=== PATIENT | male | born 1945 | race American Indian/Alaskan Native ===

== ENCOUNTER 2020-02-19 23:16 | Inpatient (IN) | payer MEDICARE ==
[2020-02-20] MEDS ORDERED: MORPHINE 4 MG/1 ML INJ IV ONE (00:31)
[2020-02-20] MEDS ORDERED: ONDANSETRON 4 MG/2 ML INJ IV ONE (00:31)
--- NOTE | 2020-02-20 01:15 | XRay Report ---
RIGHT HIP 2 VIEWS INDICATION / CLINICAL INFORMATION: pain after fall COMPARISON: 08/31/2018 FINDINGS: BONES / JOINT(S): There is an intertrochanteric fracture of the right femur . There is degenerative c hange in the right hip. SOFT TISSUES: No significant abnormality. ADDITIONAL FINDINGS: None. Signer Name: Avni Bolton MD Signed: 02/20/2020 1:10 AM Workstation Name: [id number]
--- NOTE | 2020-02-20 01:17 | Emergency Department Report ---
ED Extremity Problem HPI - General Chief complaint: Extremity Injury, Lower Stated complaint: RT LEG PAIN Time Seen by Provider: 02/20/20 00:26 Source: EMS Mode of arrival: Stretcher Limitations: Physical Limitation - History of Present Illness Initial comments: Patient is a 74-year-old F Citizen Of [place] male with a past medical history of recurrent pulmonary embolus atrial fibrillation and hypertension who is coming in with injury to the right hip. Patient states he was at home and saw a mouse or rat and it is attempt to try to catch the animal and kill it he tripped over the side of his couch and fell on his right hip. Patient was unable to bear weight after falling. He denies any other injury. Patient states the pain is 8 out of 10 and is worse with movement and better with rest. Severity scale (0 -10): 0 - Related Data Home Medications Medication Instructions Recorded Confirmed Last Taken ALBUTEROL Inhaler(NF) 180 mcg INHALATION Q4-6H PRN 08/28/18 08/31/18 08/27/18 Adult Low Dose Aspirin EC 81 mg PO DAILY 08/28/18 08/31/18 08/27/18 Nifedipine 60 mg PO DAILY 08/28/18 08/31/18 08/27/18 Furosemide [Lasix TAB] 40 mg PO BID 08/31/18 08/31/18 Unknown Metoprolol Tartrate 100 mg PO BID 08/31/18 08/31/18 Unknown Omeprazole 20 mg PO DAILY 08/31/18 08/31/18 Unknown Warfarin Sodium [Coumadin] 6 mg PO BID 08/31/18 08/31/18 Unknown cloNIDine [Catapres] 0.2 mg PO DAILY 08/31/18 08/31/18 Unknown oxyCODONE /ACETAMINOPHEN [Percocet 1 tab PO Q8HR PRN 08/31/18 08/31/18 Unknown 5/325 mg] Allergies Allergy/AdvReac Type Severity Reaction Status Date / Time No Known Allergies Allergy Verified 08/26/18 22:56 ED Review of Systems ROS: Stated complaint: RT LEG PAIN Other details as noted in HPI Comment: All other systems reviewed and negative ED Past Medical Hx - Past Medical History Hx Hypertension: Yes Hx Diabetes: Yes Hx Deep Vein Thrombosis: Yes Hx Pulmonary Embolism: Yes Hx GERD: Yes Hx Kidney Stones: Yes Additional medical history: AFib - Surgical History Hx Pacemaker: Yes Additional Surgical History: Right wrist 2008 - Social History Smoking Status: Former Smoker Substance Use Type: Alcohol - Medications Home Medications: Home Medications Medication Instructions Recorded Confirmed Last Taken Type ALBUTEROL Inhaler(NF) 180 mcg INHALATION Q4-6H PRN 08/28/18 08/31/18 08/27/18 History Adult Low Dose Aspirin EC 81 mg PO DAILY 08/28/18 08/31/18 08/27/18 History Nifedipine 60 mg PO DAILY 08/28/18 08/31/18 08/27/18 History Furosemide [Lasix TAB] 40 mg PO BID 08/31/18 08/31/18 Unknown History Metoprolol Tartrate 100 mg PO BID 08/31/18 08/31/18 Unknown History Omeprazole 20 mg PO DAILY 08/31/18 08/31/18 Unknown History Warfarin Sodium [Coumadin] 6 mg PO BID 08/31/18 08/31/18 Unknown History cloNIDine [Catapres] 0.2 mg PO DAILY 08/31/18 08/31/18 Unknown History oxyCODONE /ACETAMINOPHEN [Percocet 1 tab PO Q8HR PRN 08/31/18 08/31/18 Unknown History 5/325 mg] ED Physical Exam - General Limitations: Physical Limitation General appearance: alert, in no apparent distress - Head Head exam: Present: atraumatic, normocephalic - Eye Eye exam: Present: normal appearance, PERRL, EOMI - ENT ENT exam: Present: mucous membranes moist - Neck Neck exam: Present: normal inspection - Respiratory Respiratory exam: Present: normal lung sounds bilaterally. Absent: respiratory distress, wheezes, rales, rhonchi, stridor - Cardiovascular Cardiovascular Exam: Present: regular rate, normal rhythm. Absent: systolic murmur, diastolic murmur, rubs, gallop - GI/Abdominal GI/Abdominal exam: Present: soft, normal bowel sounds - Rectal Rectal exam: Present: deferred - Extremities Exam Extremities exam: Present: normal inspection - Expanded Lower Extremity Exam Right Hip exam: Present: tenderness, external rotation, shortening. Absent: full ROM Upper Leg exam: Present: normal inspection Knee exam: Present: normal inspection Lower Leg exam: Present: normal inspection Ankle exam: Present: normal inspection - Back Exam Back exam: Present: normal inspection - Neurological Exam Neurological exam: Present: alert, oriented X3 - Psychiatric Psychiatric exam: Present: normal affect, normal mood - Skin Skin exam: Present: warm, dry, intact, normal color. Absent: rash ED Course Vital Signs 02/20/20 00:10 Temperature 97.3 F L Pulse Rate 70 Respiratory 18 Rate Blood Pressure 136/84 [Left] O2 Sat by Pulse 97 Oximetry ED Medical Decision Making - Lab Data Result diagrams: 02/20/20 00:42 02/20/20 00:42 - Radiology Data Ordering Physician: LANA SUTTON MD Date of Service: 02/20/20 Procedure(s): XR chest 1V ap Accession Number(s): [id number] cc: LANA SUTTON MD Fluoro Time In Minutes: CHEST 1 VIEW INDICATION / CLINICAL INFORMATION: post op evaluation. COMPARISON: 08/31/2018 FINDINGS: SUPPORT DEVICES: AICD appears unchanged HEART / MEDIASTINUM: No significant abnormality. LUNGS / PLEURA: There are low lung volumes. No focal infiltrate is seen. No pneumothorax. ADDITIONAL FINDINGS: No significant additional findings. IMPRESSION: 1. No acute findings. Signer Name: Avni Bolton MD Signed: 02/20/2020 1:11 AM Workstation Name: [id number] Patient: JAELYN WHITNEY MR#: [id number] : 1945 Acct:[id number] Age/Sex: 74 / M ADM Date: 02/19/20 Loc: ED Attending Dr: Ordering Physician: LANA SUTTON MD Date of Service: 02/20/20 Procedure(s): XR hip 2-3V RT Accession Number(s): [id number] cc: LANA SUTTON MD Fluoro Time In Minutes: RIGHT HIP 2 VIEWS INDICATION / CLINICAL INFORMATION: pain after fall COMPARISON: 08/31/2018 FINDINGS: BONES / JOINT(S): There is an intertrochanteric fracture of the right femur . There is degenerative change in the right hip. SOFT TISSUES: No significant abnormality. ADDITIONAL FINDINGS: None. Signer Name: Avni Bolton MD Signed: 02/20/2020 1:10 AM Workstation Name: [employer] - Medical Decision Making Patient is a 74-year-old who fell and has a intertrochanteric fracture of the right hip. Dr. Serrano with orthopedic surgery has been consulted and the patient be admitted to the hospitalist service. Critical care attestation.: If time is entered above; I have spent that time in minutes in the direct care o f this critically ill patient, excluding procedure time. ED Disposition Clinical Impression: Intertrochanteric fracture of right femur Disposition: OP ADMIT IP TO THIS HOSP Is pt being admited?: Yes Does the pt Need Aspirin: No Condition: Stable Time of Disposition: 01:52
[2020-02-20 01:25] LABS: Basophils % (Auto) 0.5 % (0.0-1.8); Eosinophils # (Auto) 0.1 K/mm3 (0.0-0.4); Eosinophils % (Auto) 1.6 % (0.0-4.3); Hematocrit 45.8 % (35.5-45.6); Hemoglobin 14.8 gm/dl (11.8-15.2); Lymphocytes # (Auto) 0.7 K/mm3 (1.2-5.4); Lymphocytes % (Auto) 14.7 % (13.4-35.0); Mean Corpuscular HGB Conc 32 % (32-34); Mean Corpuscular Volume 80 fl (84-94); Monocytes # (Auto) 0.4 K/mm3 (0.0-0.8); Monocytes % (Auto) 7.4 % (0.0-7.3); Platelet Count 135 K/mm3 (140-440); Red Blood Count 5.72 M/mm3 (3.65-5.03); Red Cell Distribution Width 17.8 % (13.2-15.2)
[2020-02-20 01:34] LABS: Calcium 8.6 mg/dL (8.4-10.2)
[2020-02-20 01:55] LABS: INR 1.57 (0.87-1.13)
[2020-02-20 01:56] LABS: Partial Thromboplastin Time 27.7 Sec. (24.2-36.6)
[2020-02-20] MEDS ORDERED: ACETAMINOPHEN 325 MG TAB PO PRN (03:10)
--- NOTE | 2020-02-20 03:24 | History and Physical Report ---
History of Present Illness History of present illness: 74-year-old man with a history of DVT, PE, hypertension, A. fib, CHF, hyperlipidemia comes emergency room for evaluation. He states that he was at home saw a rat and was chasing it, however he fell over the side of the sofa and landed on his right side. He has pain on the right side, difficulty bearing weight. In the emergency room he was found to have a hip fracture for which she will be admitted for Review Of Systems: Constitutional: no weight loss, fever, chills Ears, eyes, nose, mouth and throat: no nasal congestion, no nasal discharge, no sinus pressure, blurry vision, diplopia Neck: No neck pain or rigidity. Cardiovascular: No palpitations, chest pain Respiratory: No shortness of breath, cough Gastrointestinal: No hematochezia Genitourinary : no dysuria, frequency Musculoskeletal: no muscle ache , joint pain Integumentary: no rash, no pruritis Neurological: no parathesias, focal weakness Endocrine: no cold or heat intolerance, no polyuria or polydipsia Hematologic/Lymphatic: no easy bruising, no easy bleeding, no gland swelling Allergic/Immunologic: no urticaria, no angioedema. PAST MEDICAL HISTORY: DVT, PE, hypertension, A. fib, CHF, hyperlipidemia PAST SURGICAL HISTORY: AICD SOCIAL HISTORY: Denies alcohol, tobacco, drugs FAMILY HISTORY: Hypertension Medications and Allergies Allergies Allergy/AdvReac Type Severity Reaction Status Date / Time No Known Allergies Allergy Verified 08/26/18 22:56 Home Medications Medication Instructions Recorded Confirmed Last Taken Type ALBUTEROL Inhaler(NF) 180 mcg INHALATION Q4-6H PRN 08/28/18 08/31/18 08/27/18 History Adult Low Dose Aspirin EC 81 mg PO DAILY 08/28/18 08/31/18 08/27/18 History Nifedipine 60 mg PO DAILY 08/28/18 08/31/18 08/27/18 History Furosemide [Lasix TAB] 40 mg PO BID 08/31/18 08/31/18 Unknown History Metoprolol Tartrate 100 mg PO BID 08/31/18 08/31/18 Unknown History Omeprazole 20 mg PO DAILY 08/31/18 08/31/18 Unknown History Warfarin Sodium [Coumadin] 6 mg PO BID 08/31/18 08/31/18 Unknown History cloNIDine [Catapres] 0.2 mg PO DAILY 08/31/18 08/31/18 Unknown History oxyCODONE /ACETAMINOPHEN [Percocet 1 tab PO Q8HR PRN 08/31/18 08/31/18 Unknown History 5/325 mg] Active Meds: Active Medications Acetaminophen (Tylenol) 650 mg PO Q4H PRN PRN Reason: Pain MILD(1-3)/Fever >100.5/COREA Morphine Sulfate (Morphine) 2 mg IV Q4H PRN PRN Reason: Pain, Moderate (4-6) Ondansetron HCl (Zofran) 4 mg IV Q8H PRN PRN Reason: Nausea And Vomiting Sodium Chloride (Sodium Chloride Flush Syringe 10 Ml) 10 ml IV BID EDILSON Sodium Chloride (Sodium Chloride Flush Syringe 10 Ml) 10 ml IV PRN PRN PRN Reason: LINE FLUSH Exam - Physical Exam Narrative exam: Gen. appearance: Patient lying in bed, no apparent distress HEENT: Normocephalic, atraumatic, pupils equally round and reactive to light, extraocular movement intact, and no sclericterus,. No JVD or thyromegaly or nodule,neck supple, no carotid bruit ,mucous membranes moist, no exudate or erythema Heart: S1, S2, regular rate and rhythm Lungs: Clear bilaterally, breathing comfortable Abdomen: Positive bowel sounds, nontender, nondistended, no organomegaly Extremity: no edema, cyanosis, clubbing Skin: No rash, nodules, warm, dry Neuro: Cranial nerves II to XII intact, speech is fluent, moves extremities, sensory intact - Constitutional Vitals: Temp Pulse Resp BP Pulse Ox 97.3 F L 70 18 136/84 97 02/20/20 00:10 02/20/20 00:10 02/20/20 00:10 02/20/20 00:10 02/20/20 00:10 Results - Labs CBC & Chem 7: 02/20/20 00:42 02/20/20 00:42 Labs: Abnormal lab results 02/20/20 02/20/20 02/20/20 Range/Units 00:42 00:42 00:42 RBC 5.72 H (3.65-5.03) M/mm3 Hct 45.8 H (35.5-45.6) % MCV 80 L (84-94) fl MCH 26 L (28-32) pg RDW 17.8 H (13.2-15.2) % Plt Count 135 L (140-440) K/mm3 [place] % (Auto) 7.4 H (0.0-7.3) % Lymph # 0.7 L (1.2-5.4) K/mm3 Seg Neutrophils % 75.8 H (40.0-70.0) % PT 18.8 H (12.2-14.9) Sec. INR 1.57 H (0.87-1.13) BUN 27 H (9-20) mg/dL Glucose 162 H (75-100) mg/dL Assessment and Plan X-ray of the hip reviewed Assessment Right hip fracture Surgery was consulted to see the patient, n.p.o., IV morphine DVT/PE/A. fib/thrombocytopenia Patient is thrombocytopenic, hold heparin for now Resume Coumadin after surgery Hypertension IV hydralazine as needed for blood pressure control Chronic CHF, probably diastolic, stable DVT prophylaxis
[2020-02-20] MEDS ORDERED: ONDANSETRON 4 MG/2 ML INJ ONE (06:28)
[2020-02-20] MEDS ORDERED: MORPHINE 2 MG/1 ML INJ ONE ×3 (06:28→18:02)
[2020-02-20] MEDS: MORPHINE 2 MG/1 ML INJ IV PRN ×3 (09:16→21:59)
--- NOTE | 2020-02-20 14:26 | Consultation ---
History of Present Illness - HPI Consult date: 02/20/20 Consult reason: fracture History of present illness: 74-year-old male with a history of DVT, PE, hypertension, A. fib, CHF, hyperlipidemia comes emergency room for evaluation. He states that he was at home saw a rat and was chasing it, however he fell over the side of the sofa and landed on his right side. He has pain on the right side, difficulty bearing weight. In the emergency department x-rays were done found to have a displaced right intertrochanteric hip fracture. Medications and Allergies Allergies Allergy/AdvReac Type Severity Reaction Status Date / Time No Known Allergies Allergy Verified 08/26/18 22:56 Home Medications Medication Instructions Recorded Confirmed Last Taken Type Amlodipine Besylate [Norvasc] 10 mg PO DAILY 02/20/20 02/20/20 2 Days Ago History ~02/18/20 Aspirin [Aspirin BABY CHEW TAB] 81 mg PO QDAY 02/20/20 02/20/20 2 Days Ago History ~02/18/20 Warfarin [Coumadin] 6 mg PO DAILY 02/20/20 02/20/20 2 Days Ago History ~02/18/20 lisinopriL [Zestril TAB] 40 mg PO QDAY 02/20/20 02/20/20 2 Days Ago History ~02/18/20 minoxidiL [Loniten] 2.5 mg PO DAILY 02/20/20 02/20/20 2 Days Ago History ~02/18/20 Active Meds: Active Medications Acetaminophen (Tylenol) 650 mg PO Q4H PRN PRN Reason: Pain MILD(1-3)/Fever >100.5/COREA Morphine Sulfate (Morphine) 2 mg IV Q4H PRN PRN Reason: Pain, Moderate (4-6) Last Admin: 02/20/20 09:16 Dose: 2 mg Documented by: Ondansetron HCl (Zofran) 4 mg IV Q8H PRN PRN Reason: Nausea And Vomiting Sodium Chloride (Sodium Chloride Flush Syringe 10 Ml) 10 ml IV BID EDILSON Last Admin: 02/20/20 09:33 Dose: 10 ml Documented by: Sodium Chloride (Sodium Chloride Flush Syringe 10 Ml) 10 ml IV PRN PRN PRN Reason: LINE FLUSH Physical Examination - Physical exam Narrative exam: On physical examination significant musculoskeletal findings relates to the lower extremities on the right patient is noted to have shortening with external rotation there is moderate swelling in the proximal thigh there is tenderness on palpation along with decreased active and passive range of motion Eyes: PERRL ENT: Positive: clear oral mucosa Respiratory effort: normal Respiratory: bilateral: CTA Rhythm: regular Heart Sounds: Positive: S1 & S2 General gastrointestinal: Positive: soft, non-tender, non-distended, normal bowel sounds Integumentary: clear, warm, dry Neurologic: Positive: CNII-XII intact, moves all extremities, gait normal. Negative: focal deficits - Cervical Spine Neck pain: none Tenderness with palpation: none Full ROM: yes ROM: flexion: normal ROM: extension: normal ROM: rotation right: normal ROM: rotation left: normal ROM: lateral flexion right: normal ROM: lateral flexion left: normal - Lumbar Spine Back pain: none Tenderness with palpation: none Appearance: normal Full ROM: yes ROM: flexion: normal ROM: extension: normal ROM: rotation right: normal ROM: rotation left: normal ROM: lateral flexion right: normal ROM: lateral flexion left: normal Assessment and Plan Displaced right intertrochanteric hip fracture Plan recommendation patient will require close reduction and insertion of intramedullary nail right proximal femur
--- NOTE | 2020-02-20 17:07 | Event Note ---
Date: 02/20/20 Very pleasant 74-year-old male patient with multiple medical problems, had mechanical fall and sustained right intertrochanteric hip fracture, evaluated by orthopedic surgeon Dr. Serrano, planning to schedule for close reduction and insertion of intramedullary nail right proximal femur for tomorrow. Patient is placed n.p.o. from midnight. Continue all the current management
[2020-02-20] MEDS ORDERED: ZOLPIDEM 5 MG TAB PO PRN (17:08)
[2020-02-20] MEDS: ONDANSETRON 4 MG/2 ML INJ IV PRN (22:03)
[2020-02-21 06:08] LABS: Basophils % (Auto) 0.5 % (0.0-1.8); Eosinophils # (Auto) 0.1 K/mm3 (0.0-0.4); Eosinophils % (Auto) 1.7 % (0.0-4.3); Hemoglobin 15.2 gm/dl (11.8-15.2); Lymphocytes # (Auto) 1.1 K/mm3 (1.2-5.4); Lymphocytes % (Auto) 14.6 % (13.4-35.0); Mean Corpuscular HGB Conc 32 % (32-34); Mean Corpuscular Volume 81 fl (84-94); Monocytes # (Auto) 0.8 K/mm3 (0.0-0.8); Monocytes % (Auto) 9.8 % (0.0-7.3); Platelet Count 107 K/mm3 (140-440); Red Blood Count 5.82 M/mm3 (3.65-5.03); Red Cell Distribution Width 17.6 % (13.2-15.2)
[2020-02-21 06:25] LABS: Calcium 8.5 mg/dL (8.4-10.2)
[2020-02-21] MEDS ORDERED: ONDANSETRON 4 MG/2 ML INJ IV PRN (08:56)
--- NOTE | 2020-02-21 09:05 | Anesthesia Consultation ---
Anesthesia Consult and Med Hx Date of service: 02/21/20 - Airway Anesthetic Teeth Evaluation: Good (Teeth need work) ROM Head & Neck: Adequate Mental/Hyoid Distance: Adequate Mallampati Class: Class II Intubation Access Assessment: Good - Pulmonary Exam CTA: Yes - Cardiac Exam Cardiac Exam: RRR - Pre-Operative Health Status ASA Pre-Surgery Classification: ASA3 Proposed Anesthetic Plan: General - Pulmonary Hx Smoking: No (Quit. HX PE) Hx Respiratory Symptoms: Yes (Can climb one flights of stairs) Hx Sleep Apnea: Yes - Cardiovascular System Hx Hypertension: Yes Hx Pacemaker: Yes (CHF) Hx Internal Defibrillator: Yes (One discharge when first put in. Checked last week) - Endocrine Hx Renal Disease: Yes (HX Stones) Hx Non-Insulin Dependent Diabetes: Yes - Hematic Hx Sickle Cell Disease: No - Other Systems Hx Obesity: Yes
[2020-02-21] MEDS: LACTATED RINGERS 1,000 ML IV SCH ×2 (09:20→15:41)
[2020-02-21] MEDS ORDERED: ACETAMINOPHEN 325 MG TAB PO ONE (09:30)
[2020-02-21] MEDS ORDERED: MAGNESIUM OXIDE 400 MG TAB PO ONE (09:30)
[2020-02-21] MEDS ORDERED: MIDAZOLAM 2 MG/2 ML INJ IV NR (10:00)
[2020-02-21] MEDS ORDERED: CELECOXIB 200 MG CAP PO NR (10:00)
[2020-02-21] MEDS ORDERED: propofoL 200 MG/20 ML VIAL IV ONE (10:04)
[2020-02-21] MEDS ORDERED: HYDROmorphone 1 MG/1 ML INJ ONE (10:04)
[2020-02-21] MEDS ORDERED: LIDOCAINE MPF (2%) 20 MG/1 ML VIAL 5 ML ONE (10:06)
[2020-02-21] MEDS ORDERED: BUPIVACAINE-EPINEPHRINE/PF 0.5%-1:200,000 (30 ML) VIAL INFILTRATI ONE (10:52)
[2020-02-21] MEDS ORDERED: BUPIVACAINE/PF (0.5%) 5 MG/1 ML 30 ML VIAL INFILTRATI ONE ×4 (10:52→11:46)
[2020-02-21] MEDS ORDERED: SODIUM CHLORIDE 0.9% IRR 1,500 ML BOTTLE IR ONE (11:28)
[2020-02-21] MEDS ORDERED: MORPHINE 4 MG/1 ML INJ IV PRN (11:39)
--- NOTE | 2020-02-21 11:45 | Procedure Note ---
Date of procedure: 02/21/20 Pre-op diagnosis: Displaced right intertrochanteric hip fracture Post-op diagnosis: same Procedure: Closed reduction insertion of intramedullary nail right femur Procedure The patient was brought to the OR on the hospital bed He was requested to lie in the lateral decubitus position at which point spinal anesthesia was induced following this the patient was then transferred onto the [place] table supine the legs were placed in longitudinal traction Z C-arm fluoroscope was brought in and the hip was reduced in both the AP and lateral planes. Next the right hip was prepped and draped in the usual sterile manner a stab wound was made posterior and superior to the greater trochanter this is carried down sharply through skin and fascia using a Mann elevator the soft tissues were split down to the tip of the greater trochanter A large awl was used to enter the proximal medullary canal this was followed by placement of the guidewire again under C-arm visualization the tip of the guidewire was seen in the distal femur next the measurements were obtained a 11 x 420 intramedullary nail was selected this was followed by reaming up to a 12-1/2 mm diameter following this the intramedullary nail was inserted and a antegrade fashion down the proximal canal into the distal femur next the targeting device for the helical blade was placed and the stab wound was made along the lateral border of the thigh again under C-arm visualization a guidewire was inserted into the femoral neck again measuring this delay a 80 mm helical blade was chosen the forearm or near cortex was drilled followed by insertion of the proximal helical blade next the locking sc rew proximally was engaged again under C-arm direction AP and lateral views were obtained showing good reduction at the fracture and placement of the hardware following this a wound was copiously irrigated and was closed in a standard routine fashion and the patient tolerated the procedure there were no complications and he was sent to postanesthesia recovery in stable condition Anesthesia: GETA Surgeon: TIFFANIE KING Operating Room Registered Nurse: MARION CABELLO Estimated blood loss: 50-100ml Pathology: none Condition: stable Disposition: PACU
[2020-02-21] MEDS ORDERED: ONDANSETRON 4 MG/2 ML INJ ONE (12:01)
[2020-02-21] MEDS: HYDROmorphone 1 MG/1 ML INJ IV PRN ×2 (12:42→13:09)
--- NOTE | 2020-02-21 14:37 | XRay Report ---
CLINICAL INDICATION: Femoral joan placement TECHNICAL DATA: 6 images submitted using C-arm technology. Fluoroscopy time 1 minute 5 seconds FINDINGS: Placement of a femoral joan using C-arm technology IMPRESSION: Femoral joan with hip nail component placement right femur Signer Name: Julius Valle MD Signed: 02/21/2020 2:32 PM Workstation Name: [id number]
--- NOTE | 2020-02-21 15:31 | Progress Note ---
Assessment and Plan Assessment and plan: --Displaced right intertrochanteric hip fracture: s/p closed reduction insertion of intramedullary nail right femur Orthopedic following Follow-up x-ray hip; Femoral joan with hip nail component placement right femur --History of mechanical fall; fall precautions PT OT prior to discharge --History of DVT/PE/on Coumadin Coumadin held due to surgical procedure Resume when cleared by orthopedic --A. fib; rate controlled Continue current beta-blockers , Coumadin stopped for surgery Consult cardiology if needed --thrombocytopenia; No evidence of external bleeding, hold heparin and Coumadin Closely monitor --Hypertension; moderate control Continue current antihypertensives and PRN medications --DVT phylaxis SCDs; Resume Coumadin once cleared by Ortho Monitor closely and adjust management as needed Plan of care reviewed with the patient's nurse History Interval history: Patient seen and examined in his room at bedside Patient's chart and records reviewed Patient underwent right hip surgery Tolerated well. Sedated Easily awakens Vital signs reviewed On BiPAP Hospitalist Physical - Constitutional Vitals: Temp Pulse Resp BP Pulse Ox 97.7 F 129 H 17 90/73 97 02/21/20 14:46 02/21/20 14:46 02/21/20 14:46 02/21/20 14:46 02/21/20 14:46 General appearance: Present: mild distress, well-nourished, obese, other (Sedated on BiPAP) - EENT Eyes: Present: PERRL, EOM intact - Neck Neck: Present: supple, normal ROM - Respiratory Respiratory effort: normal Respiratory: bilateral: diminished, negative: rales, rhonchi, wheezing - Cardiovascular Rhythm: regular Heart Sounds: Present: S1 & S2 - Extremities Extremities: no ischemia, No edema, abnormal (Hip fracture status post surgery) - Abdominal General gastrointestinal: soft, non-tender, non-distended, normal bowel sounds - Integumentary Integumentary: Present: clear, warm - Psychiatric Psychiatric: appropriate mood/affect, cooperative - Neurologic Neurologic: moves all extremities Results - Labs CBC & Chem 7: 02/21/20 05:32 02/21/20 05:32 Labs: Laboratory Last Values WBC 7.7 K/mm3 (4.5-11.0) 02/21/20 05:32 RBC 5.82 M/mm3 (3.65-5.03) H 02/21/20 05:32 Hgb 15.2 gm/dl (11.8-15.2) 02/21/20 05:32 Hct 47.0 % (35.5-45.6) H 02/21/20 05:32 MCV 81 fl (84-94) L 02/21/20 05:32 MCH 26 pg (28-32) L 02/21/20 05:32 MCHC 32 % (32-34) 02/21/20 05:32 RDW 17.6 % (13.2-15.2) H 02/21/20 05:32 Plt Count 107 K/mm3 (140-440) L 02/21/20 05:32 Lymph % (Auto) 14.6 % (13.4-35.0) 02/21/20 05:32 [place] % (Auto) 9.8 % (0.0-7.3) H 02/21/20 05:32 Eos % (Auto) 1.7 % (0.0-4.3) 02/21/20 05:32 Baso % (Auto) 0.5 % (0.0-1.8) 02/21/20 05:32 Lymph # 1.1 K/mm3 (1.2-5.4) L 02/21/20 05:32 [place] # 0.8 K/mm3 (0.0-0.8) 02/21/20 05:32 Eos # 0.1 K/mm3 (0.0-0.4) 02/21/20 05:32 Baso # 0.0 K/mm3 (0.0-0.1) 02/21/20 05:32 Seg Neutrophils % 73.4 % (40.0-70.0) H 02/21/20 05:32 Seg Neutrophils # 5.7 K/mm3 (1.8-7.7) 02/21/20 05:32 PT 18.8 Sec. (12.2-14.9) H 02/20/20 00:42 INR 1.57 (0.87-1.13) H 02/20/20 00:42 APTT 27.7 Sec. (24.2-36.6) 02/20/20 00:42 Sodium 141 mmol/L (137-145) 02/21/20 05:32 Potassium 3.9 mmol/L (3.6-5.0) 02/21/20 05:32 Chloride 105.4 mmol/L (98-107) 02/21/20 05:32 Carbon Dioxide 20 mmol/L (22-30) L 02/21/20 05:32 Anion Gap 20 mmol/L 02/21/20 05:32 BUN 28 mg/dL (9-20) H 02/21/20 05:32 Creatinine 1.4 mg/dL (0.8-1.5) 02/21/20 05:32 Estimated GFR 60 ml/min 02/21/20 05:32 BUN/Creatinine Ratio 20 % 02/21/20 05:32 Glucose 150 mg/dL (75-100) H 02/21/20 05:32 POC Glucose 121 (70-105) H 02/21/20 06:26 Calcium 8.5 mg/dL (8.4-10.2) 02/21/20 05:32 Coronavirus (PCR) Negative (Negative) 02/21/20 09:40 [place]/IV: Voiding Method Urinal IV Catheter Type [Right INT / Saline Lock Antecubital] Active Medications - Current Medications Current Medications: Generic Name Dose Route Start Last Admin Trade Name Freq PRN Reason Stop Dose Admin Acetaminophen 650 mg 02/20/20 03:10 Tylenol PO Q4H PRN Pain MILD(1-3)/Fever >100.5/COREA Celecoxib 200 mg 02/21/20 10:00 02/21/20 09:20 Celebrex PO 02/21/20 16:00 200 mg PREOP NR Administration Enoxaparin Sodium 40 mg 02/22/20 10:00 Enoxaparin SUB-Q QDAY EDILSON Hydromorphone HCl 0.5 mg 02/21/20 08:56 02/21/20 13:09 Dilaudid IV 02/21/20 22:00 0.5 mg Q10MIN PRN Administration Pain , Severe (7-10) Lactated Ringer's 1,000 mls @ 125 mls/hr 02/21/20 10:00 02/21/20 09:20 Lactated Ringers IV 125 mls/hr DIRECT EDILSON Administration Cefazolin Sodium 3 gm/ Sodium 100 mls @ 200 mls/hr 02/21/20 10:00 Chloride IV 02/21/20 16:00 ONCE EDILSON Midazolam HCl 2 mg 02/21/20 10:00 02/21/20 09:55 Versed IV 02/21/20 23:59 2 mg PREOP NR Administration Morphine Sulfate 2 mg 02/21/20 11:39 Morphine IV Q4H PRN Pain, Moderate (4-6) Morphine Sulfate 4 mg 02/21/20 11:39 Morphine IV Q4H PRN Pain , Severe (7-10) Ondansetron HCl 4 mg 02/20/20 03:10 02/20/20 22:03 Zofran IV 4 mg Q8H PRN Administration Nausea And Vomiting Sodium Chloride 10 ml 02/20/20 10:00 02/20/20 22:05 Sodium Chloride Flush Syringe 10 Ml IV 10 ml BID EDILSON Administration Sodium Chloride 10 ml 02/20/20 03:10 Sodium Chloride Flush Syringe 10 Ml IV PRN PRN LINE FLUSH Sodium Chloride 10 ml 02/21/20 12:00 Sodium Chloride Flush Syringe 10 Ml IV 03/02/20 11:59 PRN NR Zolpidem Tartrate 5 mg 02/20/20 17:08 Ambien PO QHS PRN Sleep
--- NOTE | 2020-02-21 21:45 | Post Anesthesia Evaluation ---
- Post Anesthesia Evaluation Patient Participated: Yes Airway Patent: Yes Stable Respiratory Function: Yes Nausea/Vomiting: No Temp > 96.8F: Yes Pain Manageable: Yes Adequeate Hydration: Yes Anesthesia Complications: No Block Receding Appropriately: Not Applicable Patient on Ventilator: No
--- NOTE | 2020-02-21 21:45 | Anesthesia Day of Surgery ---
Anesthesia Day of Surgery - Day of Surgery Patient Examined: Yes Patient H&P Reviewed: Yes Patient is NPO: Yes
[2020-02-22] MEDS: MORPHINE 2 MG/1 ML INJ IV PRN (00:26)
[2020-02-22] MEDS: ONDANSETRON 4 MG/2 ML INJ IV PRN (00:28)
[2020-02-22] MEDS: LACTATED RINGERS 1,000 ML IV SCH ×2 (00:33→06:31)
[2020-02-22 04:11] LABS: Hematocrit 42.8 % (35.5-45.6); Hemoglobin 13.6 gm/dl (11.8-15.2)
[2020-02-22] MEDS: ENOXAPARIN 40 MG/0.4 ML INJ SUB-Q SCH (09:50)
[2020-02-22] MEDS ORDERED: ALUM-MAG HYDROXIDE-SIMETHICONE 200-200-20MG/5ML ORAL LIQD 30 ML PO SCH (10:30)
[2020-02-22] MEDS: PANTOPRAZOLE 40 MG TAB PO SCH (11:14)
[2020-02-22] MEDS: amLODIPine 10 MG TAB PO SCH (11:15)
[2020-02-22] MEDS: LISINOPRIL 40 MG TAB PO SCH (11:15)
[2020-02-22] MEDS: MINOXIDIL 2.5 MG TAB PO SCH (11:15)
--- NOTE | 2020-02-22 14:26 | Progress Note ---
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 fib; rate controlled Continue current beta-blockers , Coumadin stopped for surgery Consult cardiology if needed --thrombocytopenia; No evidence of external bleeding, hold heparin and Coumadin Closely monitor --Hypertension; moderate control Continue current antihypertensives and PRN medications --DVT phylaxis SCDs; Resume Coumadin once cleared by Ortho Discharge planning; possible subacute rehab versus home with home health When patient is stable DC planning per case management Plan of care reviewed with the patient and his nurse History Interval history: Patient seen and examined at bedside Overnight events noted Patient complains of abdominal discomfort Epigastric fullness dyspepsia and acidity After he ate kaur this morning Mild nausea no vomiting Tolerated physical therapy vital signs noted Hospitalist Physical - Constitutional Vitals: Temp Pulse Resp BP Pulse Ox 99.9 F H 64 20 107/71 95 02/22/20 07:07 02/22/20 07:07 02/22/20 07:07 02/22/20 07:07 02/22/20 10:00 General appearance: Present: mild distress, well-nourished, obese, other (Sedated on BiPAP) - EENT Eyes: Present: PERRL, EOM intact - Neck Neck: Present: supple, normal ROM - Respiratory Respiratory effort: normal Respiratory: bilateral: diminished, negative: rales, rhonchi, wheezing - Cardiovascular Rhythm: regular Heart Sounds: Present: S1 & S2 - Extremities Extremities: no ischemia, No edema - Abdominal General gastrointestinal: soft, non-tender, non-distended, normal bowel sounds - Integumentary Integumentary: Present: clear, warm - Psychiatric Psychiatric: appropriate mood/affect, cooperative - Neurologic Neurologic: moves all extremities Results - Labs CBC & Chem 7: 02/22/20 03:48 02/21/20 05:32 Labs: Laboratory Last Values WBC 7.7 K/mm3 (4.5-11.0) 02/21/20 05:32 RBC 5.82 M/mm3 (3.65-5.03) H 02/21/20 05:32 Hgb 13.6 gm/dl (11.8-15.2) 02/22/20 03:48 Hct 42.8 % (35.5-45.6) 02/22/20 03:48 MCV 81 fl (84-94) L 02/21/20 05:32 MCH 26 pg (28-32) L 02/21/20 05:32 MCHC 32 % (32-34) 02/21/20 05:32 RDW 17.6 % (13.2-15.2) H 02/21/20 05:32 Plt Count 107 K/mm3 (140-440) L 02/21/20 05:32 Lymph % (Auto) 14.6 % (13.4-35.0) 02/21/20 05:32 [place] % (Auto) 9.8 % (0.0-7.3) H 02/21/20 05:32 Eos % (Auto) 1.7 % (0.0-4.3) 02/21/20 05:32 Baso % (Auto) 0.5 % (0.0-1.8) 02/21/20 05:32 Lymph # 1.1 K/mm3 (1.2-5.4) L 02/21/20 05:32 [place] # 0.8 K/mm3 (0.0-0.8) 02/21/20 05:32 Eos # 0.1 K/mm3 (0.0-0.4) 02/21/20 05:32 Baso # 0.0 K/mm3 (0.0-0.1) 02/21/20 05:32 Seg Neutrophils % 73.4 % (40.0-70.0) H 02/21/20 05:32 Seg Neutrophils # 5.7 K/mm3 (1.8-7.7) 02/21/20 05:32 PT 18.8 Sec. (12.2-14.9) H 02/20/20 00:42 INR 1.57 (0.87-1.13) H 02/20/20 00:42 APTT 27.7 Sec. (24.2-36.6) 02/20/20 00:42 Sodium 141 mmol/L (137-145) 02/21/20 05:32 Potassium 3.9 mmol/L (3.6-5.0) 02/21/20 05:32 Chloride 105.4 mmol/L (98-107) 02/21/20 05:32 Carbon Dioxide 20 mmol/L (22-30) L 02/21/20 05:32 Anion Gap 20 mmol/L 02/21/20 05:32 BUN 28 mg/dL (9-20) H 02/21/20 05:32 Creatinine 1.4 mg/dL (0.8-1.5) 02/21/20 05:32 Estimated GFR 60 ml/min 02/21/20 05:32 BUN/Creatinine Ratio 20 % 02/21/20 05:32 Glucose 150 mg/dL (75-100) H 02/21/20 05:32 POC Glucose 132 (70-105) H 02/22/20 07:20 Calcium 8.5 mg/dL (8.4-10.2) 02/21/20 05:32 Coronavirus (PCR) Negative (Negative) 02/21/20 09:40 Hinson/IV: Voiding Method Condom Catheter IV Catheter Type [Left Hand] Peripheral IV IV Catheter Type [Right INT / Saline Lock Antecubital] Active Medications - Current Medications Current Medications: Generic Name Dose Route Start Last Admin Trade Name Freq PRN Reason Stop Dose Admin Acetaminophen 650 mg 02/20/20 03:10 Tylenol PO Q4H PRN Pain MILD(1-3)/Fever >100.5/COREA Amlodipine Besylate 10 mg 02/22/20 10:00 02/22/20 11:15 Amlodipine PO 10 mg DAILY EDILSON Administration Enoxaparin Sodium 40 mg 02/22/20 10:00 02/22/20 09:50 Enoxaparin SUB-Q 40 mg QDAY EDILSON Administration Lactated Ringer's 1,000 mls @ 125 mls/hr 02/21/20 10:00 02/22/20 06:31 Lactated Ringers IV 125 mls/hr DIRECT EDILSON Administration Lisinopril 40 mg 02/22/20 10:00 02/22/20 11:15 Zestril PO 40 mg QDAY EDILSON Administration Minoxidil 2.5 mg 02/22/20 10:00 02/22/20 11:15 Loniten PO 2.5 mg DAILY EDILSON Administration Morphine Sulfate 2 mg 02/21/20 11:39 02/22/20 00:26 Morphine IV 2 mg Q4H PRN Administration Pain, Moderate (4-6) Morphine Sulfate 4 mg 02/21/20 11:39 Morphine IV Q4H PRN Pain , Severe (7-10) Ondansetron HCl 4 mg 02/20/20 03:10 02/22/20 00:28 Zofran IV 4 mg Q8H PRN Administration Nausea And Vomiting Pantoprazole Sodium 40 mg 02/22/20 11:00 02/22/20 11:14 Protonix PO 40 mg QDAY EDILSON Administration Sodium Chloride 10 ml 02/20/20 10:00 02/22/20 11:16 Sodium Chloride Flush Syringe 10 Ml IV 10 ml BID EDILSON Administration Sodium Chloride 10 ml 02/20/20 03:10 Sodium Chloride Flush Syringe 10 Ml IV PRN PRN LINE FLUSH Sodium Chloride 10 ml 02/21/20 12:00 Sodium Chloride Flush Syringe 10 Ml IV 03/02/20 11:59 PRN NR Zolpidem Tartrate 5 mg 02/20/20 17:08 Ambien PO QHS PRN Sleep
[2020-02-22] MEDS ORDERED: ALUM-MAG HYDROXIDE-SIMETHICONE 200-200-20MG/5ML ORAL LIQD 30 ML PO PRN (14:27)
[2020-02-22] MEDS ORDERED: ALUM-MAG HYDROXIDE-SIMETHICONE 200-200-20MG/5ML ORAL LIQD 30 ML PO ONE (14:27)
--- NOTE | 2020-02-22 15:26 | Progress Note ---
Assessment and Plan s/p IM nail right hip/femur post op #1 continue PT and observation Subjective Date of service: 02/22/20 Interval history: c/o indigestion, hx/o acid reflux...otherwise ok, got up with PT earlier... Objective Vital signs: Vital Signs - 12hr 02/22/20 02/22/20 02/22/20 05:10 07:07 10:00 Temperature 99.7 F H 99.9 F H Pulse Rate 67 64 Respiratory 18 20 Rate Blood Pressure 109/68 107/71 O2 Sat by Pulse 97 95 95 Oximetry Incision: healing, clean and dry Weight bearing status: partial - Labs CBC & BMP: 02/22/20 03:48 02/21/20 05:32 Labs: Abnormal lab results 02/21/20 02/22/20 02/22/20 Range/Units 12:39 00:02 07:20 POC Glucose 147 H 139 H 132 H (70-105)
[2020-02-22] MEDS: CALCIUM CARBONATE 500 MG TAB CHEW PO SCH (22:31)
[2020-02-23] MEDS: LACTATED RINGERS 1,000 ML IV SCH ×2 (02:18→19:41)
--- NOTE | 2020-02-23 10:38 | Progress Note ---
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 fib; rate controlled Continue current beta-blockers , Coumadin stopped for surgery Consult cardiology if needed --thrombocytopenia; No evidence of external bleeding, hold heparin and Coumadin Closely monitor --Hypertension; moderate control Continue current antihypertensives and PRN medications --DVT phylaxis SCDs; Resume Coumadin once cleared by Ortho Discharge planning; possible subacute rehab versus home with home health When patient is stable DC planning per case management Plan of care reviewed with the patient and his nurse History Interval history: I have seen and examined the patient at bedside this morning Patient's chart medications tests reviewed Patient feels better no new complaints Heartburn completely resolved Tolerating physical therapy Vital signs noted Hospitalist Physical - Constitutional Vitals: Temp Pulse Resp BP Pulse Ox 98.0 F 74 18 109/69 99 02/23/20 07:04 02/23/20 07:04 02/23/20 07:04 02/23/20 07:04 02/23/20 07:04 General appearance: Present: no acute distress, well-nourished, obese, other (Sedated on BiPAP) - EENT Eyes: Present: PERRL, EOM intact - Neck Neck: Present: supple, normal ROM - Respiratory Respiratory effort: normal Respiratory: bilateral: diminished, negative: rales, rhonchi, wheezing - Cardiovascular Rhythm: regular Heart Sounds: Present: S1 & S2 - Extremities Extremities: no ischemia, No edema - Abdominal General gastrointestinal: soft, non-tender, non-distended, normal bowel sounds - Integumentary Integumentary: Present: clear, warm - Psychiatric Psychiatric: appropriate mood/affect, cooperative - Neurologic Neurologic: CNII-XII intact, moves all extremities Results - Labs CBC & Chem 7: 02/22/20 03:48 02/21/20 05:32 Labs: Laboratory Last Values WBC 7.7 K/mm3 (4.5-11.0) 02/21/20 05:32 RBC 5.82 M/mm3 (3.65-5.03) H 02/21/20 05:32 Hgb 13.6 gm/dl (11.8-15.2) 02/22/20 03:48 Hct 42.8 % (35.5-45.6) 02/22/20 03:48 MCV 81 fl (84-94) L 02/21/20 05:32 MCH 26 pg (28-32) L 02/21/20 05:32 MCHC 32 % (32-34) 02/21/20 05:32 RDW 17.6 % (13.2-15.2) H 02/21/20 05:32 Plt Count 107 K/mm3 (140-440) L 02/21/20 05:32 Lymph % (Auto) 14.6 % (13.4-35.0) 02/21/20 05:32 [place] % (Auto) 9.8 % (0.0-7.3) H 02/21/20 05:32 Eos % (Auto) 1.7 % (0.0-4.3) 02/21/20 05:32 Baso % (Auto) 0.5 % (0.0-1.8) 02/21/20 05:32 Lymph # 1.1 K/mm3 (1.2-5.4) L 02/21/20 05:32 [place] # 0.8 K/mm3 (0.0-0.8) 02/21/20 05:32 Eos # 0.1 K/mm3 (0.0-0.4) 02/21/20 05:32 Baso # 0.0 K/mm3 (0.0-0.1) 02/21/20 05:32 Seg Neutrophils % 73.4 % (40.0-70.0) H 02/21/20 05:32 Seg Neutrophils # 5.7 K/mm3 (1.8-7.7) 02/21/20 05:32 PT 18.8 Sec. (12.2-14.9) H 02/20/20 00:42 INR 1.57 (0.87-1.13) H 02/20/20 00:42 APTT 27.7 Sec. (24.2-36.6) 02/20/20 00:42 Sodium 141 mmol/L (137-145) 02/21/20 05:32 Potassium 3.9 mmol/L (3.6-5.0) 02/21/20 05:32 Chloride 105.4 mmol/L (98-107) 02/21/20 05:32 Carbon Dioxide 20 mmol/L (22-30) L 02/21/20 05:32 Anion Gap 20 mmol/L 02/21/20 05:32 BUN 28 mg/dL (9-20) H 02/21/20 05:32 Creatinine 1.4 mg/dL (0.8-1.5) 02/21/20 05:32 Estimated GFR 60 ml/min 02/21/20 05:32 BUN/Creatinine Ratio 20 % 02/21/20 05:32 Glucose 150 mg/dL (75-100) H 02/21/20 05:32 POC Glucose 132 (70-105) H 02/22/20 07:20 Calcium 8.5 mg/dL (8.4-10.2) 02/21/20 05:32 Coronavirus (PCR) Negative (Negative) 02/21/20 09:40 Hinson/IV: Voiding Method Condom Catheter IV Catheter Type [Left Hand] Peripheral IV IV Catheter Type [Right INT / Saline Lock Antecubital] Active Medications - Current Medications Current Medications: Generic Name Dose Route Start Last Admin Trade Name Freq PRN Reason Stop Dose Admin Acetaminophen 650 mg 02/20/20 03:10 Tylenol PO Q4H PRN Pain MILD(1-3)/Fever >100.5/OCREA Al Hydrox/Mg Hydrox/Simethicone 15 ml 02/22/20 14:27 Alum-Mag Hydrox-Simeth 881-435-85vr/5ml PO Q4H PRN Indigestion Amlodipine Besylate 10 mg 02/22/20 10:00 02/22/20 11:15 Amlodipine PO 10 mg DAILY EDILSON Administration Calcium Carbonate/Glycine 500 mg 02/22/20 22:00 02/22/20 22:31 Tums PO 500 mg BID EDILSON Administration Enoxaparin Sodium 40 mg 02/22/20 10:00 02/22/20 09:50 Enoxaparin SUB-Q 40 mg QDAY EDILSON Administration Lactated Ringer's 1,000 mls @ 125 mls/hr 02/21/20 10:00 02/23/20 02:18 Lactated Ringers IV 125 mls/hr DIRECT EDILSON Administration Lisinopril 40 mg 02/22/20 10:00 02/22/20 11:15 Zestril PO 40 mg QDAY EDILSON Administration Minoxidil 2.5 mg 02/22/20 10:00 02/22/20 11:15 Loniten PO 2.5 mg DAILY EDILSON Administration Morphine Sulfate 2 mg 02/21/20 11:39 02/22/20 00:26 Morphine IV 2 mg Q4H PRN Administration Pain, Moderate (4-6) Morphine Sulfate 4 mg 02/21/20 11:39 Morphine IV Q4H PRN Pain , Severe (7-10) Ondansetron HCl 4 mg 02/20/20 03:10 02/22/20 00:28 Zofran IV 4 mg Q8H PRN Administration Nausea And Vomiting Oxycodone/Acetaminophen 1 tab 02/22/20 20:47 Percocet 5/325 PO Q4H PRN Pain, Moderate (4-6) Pantoprazole Sodium 40 mg 02/22/20 11:00 02/22/20 11:14 Protonix PO 40 mg QDAY EDILSON Administration Sodium Chloride 10 ml 02/20/20 10:00 02/22/20 22:32 Sodium Chloride Flush Syringe 10 Ml IV 10 ml BID EDILSON Administration Sodium Chloride 10 ml 02/20/20 03:10 Sodium Chloride Flush Syringe 10 Ml IV PRN PRN LINE FLUSH Sodium Chloride 10 ml 02/21/20 12:00 Sodium Chloride Flush Syringe 10 Ml IV 03/02/20 11:59 PRN NR Zolpidem Tartrate 5 mg 02/20/20 17:08 Ambien PO QHS PRN Sleep
[2020-02-23] MEDS: CALCIUM CARBONATE 500 MG TAB CHEW PO SCH ×2 (12:12→21:55)
[2020-02-23] MEDS: PANTOPRAZOLE 40 MG TAB PO SCH (12:12)
[2020-02-23] MEDS: ENOXAPARIN 40 MG/0.4 ML INJ SUB-Q SCH (12:12)
[2020-02-23] MEDS: MINOXIDIL 2.5 MG TAB PO SCH (15:06)
[2020-02-23] MEDS: oxyCODONE /ACETAMINOPHEN 5-325MG TAB PO PRN (17:38)
[2020-02-23] MEDS: LISINOPRIL 40 MG TAB PO SCH (17:39)
[2020-02-23] MEDS: amLODIPine 10 MG TAB PO SCH (17:39)
[2020-02-23] MEDS: MORPHINE 2 MG/1 ML INJ IV PRN (19:35)
[2020-02-24] MEDS: MORPHINE 2 MG/1 ML INJ IV PRN (00:25)
[2020-02-24] MEDS: CALCIUM CARBONATE 500 MG TAB CHEW PO SCH ×2 (10:49→21:49)
[2020-02-24] MEDS: ENOXAPARIN 40 MG/0.4 ML INJ SUB-Q SCH (10:49)
[2020-02-24] MEDS: PANTOPRAZOLE 40 MG TAB PO SCH (10:50)
[2020-02-24] MEDS: MINOXIDIL 2.5 MG TAB PO SCH (10:50)
--- NOTE | 2020-02-24 14:58 | Progress Note ---
Assessment and Plan Assessment and plan: --Displaced right intertrochanteric hip fracture: s/p closed reduction insertion of intramedullary nail right femur Follow-up x-ray hip;Femoral joan with hip nail component placement right femur PT OT. Subacute rehab placement, [facility] COVID tests 24 hours apart negative, as requested by rehab. 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 fib; rate controlled Continue current beta-blockers , resume Coumadin Target INR 2-3 --Chronic thrombocytopenia; No evidence of external bleeding --Hypertension; moderate control Continue current antihypertensives and PRN medications --DVT phylaxis SCDs; Resume Coumadin once cleared by Ortho Discharge planning; possible subacute rehab versus home with home health When patient is stable DC planning per case management Plan of care reviewed with the patient and his nurse Disposition; stable for discharge and transfer to SNF today Brief history: 74-year-old male with a history of DVT, PE, hypertension, A. fib, CHF, hyperlipidemia was admitted through emergency room with history of fall chasing a rat at home and sustained displaced right intertrochanteric hip fracture. Evaluated by orthopedic surgeon underwent , closed reduction insertion of intramedullary nail right femur. Patient received physical therapy occupational therapy rehabilitation, subacute rehab [facility] accepted the patient, to call with test 24 hours apart are negative, patient is stable to be discharged, however [facility] is still processing the paperwork, not ready to accept. Case management assisting with DC planning History Interval history: Patient seen and examined at bedside in his room today Patient feels better no new complaints Tolerating physical therapy Heartburn resolved with medications Vital signs reviewed stable Hospitalist Physical - Constitutional Vitals: Temp Pulse Resp BP Pulse Ox 98.9 F 65 18 118/52 96 02/24/20 11:15 02/24/20 11:15 02/24/20 11:15 02/24/20 11:15 02/24/20 11:15 General appearance: Present: no acute distress, well-nourished, obese, other (Sedated on BiPAP) - EENT Eyes: Present: PERRL, EOM intact - Neck Neck: Present: supple, normal ROM - Respiratory Respiratory effort: normal Respiratory: bilateral: diminished, negative: rales, rhonchi, wheezing - Cardiovascular Rhythm: regular Heart Sounds: Present: S1 & S2 - Extremities Extremities: no ischemia, No edema, abnormal (Right hip postop phase) - Abdominal General gastrointestinal: soft, non-tender, non-distended, normal bowel sounds - Integumentary Integumentary: Present: clear, warm - Psychiatric Psychiatric: appropriate mood/affect, cooperative - Neurologic Neurologic: CNII-XII intact, moves all extremities Results - Labs CBC & Chem 7: 02/22/20 03:48 02/21/20 05:32 Labs: Laboratory Last Values WBC 7.7 K/mm3 (4.5-11.0) 02/21/20 05:32 RBC 5.82 M/mm3 (3.65-5.03) H 02/21/20 05:32 Hgb 13.6 gm/dl (11.8-15.2) 02/22/20 03:48 Hct 42.8 % (35.5-45.6) 02/22/20 03:48 MCV 81 fl (84-94) L 02/21/20 05:32 MCH 26 pg (28-32) L 02/21/20 05:32 MCHC 32 % (32-34) 02/21/20 05:32 RDW 17.6 % (13.2-15.2) H 02/21/20 05:32 Plt Count 107 K/mm3 (140-440) L 02/21/20 05:32 Lymph % (Auto) 14.6 % (13.4-35.0) 02/21/20 05:32 [place] % (Auto) 9.8 % (0.0-7.3) H 02/21/20 05:32 Eos % (Auto) 1.7 % (0.0-4.3) 02/21/20 05:32 Baso % (Auto) 0.5 % (0.0-1.8) 02/21/20 05:32 Lymph # 1.1 K/mm3 (1.2-5.4) L 02/21/20 05:32 [place] # 0.8 K/mm3 (0.0-0.8) 02/21/20 05:32 Eos # 0.1 K/mm3 (0.0-0.4) 02/21/20 05:32 Baso # 0.0 K/mm3 (0.0-0.1) 02/21/20 05:32 Seg Neutrophils % 73.4 % (40.0-70.0) H 02/21/20 05:32 Seg Neutrophils # 5.7 K/mm3 (1.8-7.7) 02/21/20 05:32 PT 18.8 Sec. (12.2-14.9) H 02/20/20 00:42 INR 1.57 (0.87-1.13) H 02/20/20 00:42 APTT 27.7 Sec. (24.2-36.6) 02/20/20 00:42 Sodium 141 mmol/L (137-145) 02/21/20 05:32 Potassium 3.9 mmol/L (3.6-5.0) 02/21/20 05:32 Chloride 105.4 mmol/L (98-107) 02/21/20 05:32 Carbon Dioxide 20 mmol/L (22-30) L 02/21/20 05:32 Anion Gap 20 mmol/L 02/21/20 05:32 BUN 28 mg/dL (9-20) H 02/21/20 05:32 Creatinine 1.4 mg/dL (0.8-1.5) 02/21/20 05:32 Estimated GFR 60 ml/min 02/21/20 05:32 BUN/Creatinine Ratio 20 % 02/21/20 05:32 Glucose 150 mg/dL (75-100) H 02/21/20 05:32 POC Glucose 132 (70-105) H 02/22/20 07:20 Calcium 8.5 mg/dL (8.4-10.2) 02/21/20 05:32 Coronavirus (PCR) Negative (Negative) 02/22/20 08:45 Hinson/IV: Voiding Method Condom Catheter IV Catheter Type [Left Hand] Peripheral IV IV Catheter Type [Right INT / Saline Lock Antecubital] Active Medications - Current Medications Current Medications: Generic Name Dose Route Start Last Admin Trade Name Freq PRN Reason Stop Dose Admin Acetaminophen 650 mg 02/20/20 03:10 Tylenol PO Q4H PRN Pain MILD(1-3)/Fever >100.5/COREA Al Hydrox/Mg Hydrox/Simethicone 15 ml 02/22/20 14:27 Alum-Mag Hydrox-Simeth [id number]/5ml PO Q4H PRN Indigestion Amlodipine Besylate 10 mg 02/22/20 10:00 02/23/20 17:39 Amlodipine PO 10 mg DAILY EDILSON Administration Calcium Carbonate/Glycine 500 mg 02/22/20 22:00 02/24/20 10:49 Tums PO 500 mg BID EDILSON Administration Enoxaparin Sodium 40 mg 02/22/20 10:00 02/24/20 10:49 Enoxaparin SUB-Q 40 mg QDAY EDILSON Administration Lactated Ringer's 1,000 mls @ 125 mls/hr 02/21/20 10:00 02/23/20 19:41 Lactated Ringers IV 125 mls/hr DIRECT EDILSON Administration Lisinopril 40 mg 02/22/20 10:00 02/23/20 17:39 Zestril PO 40 mg QDAY EDILSON Administration Minoxidil 2.5 mg 02/22/20 10:00 02/24/20 10:50 Loniten PO 2.5 mg DAILY EDILSON Administration Morphine Sulfate 2 mg 02/21/20 11:39 02/24/20 00:25 Morphine IV 2 mg Q4H PRN Administration Pain, Moderate (4-6) Morphine Sulfate 4 mg 02/21/20 11:39 Morphine IV Q4H PRN Pain , Severe (7-10) Ondansetron HCl 4 mg 02/20/20 03:10 02/22/20 00:28 Zofran IV 4 mg Q8H PRN Administration Nausea And Vomiting Oxycodone/Acetaminophen 1 tab 02/22/20 20:47 02/23/20 17:38 Percocet 5/325 PO 1 tab Q4H PRN Administration Pain, Moderate (4-6) Pantoprazole Sodium 40 mg 02/22/20 11:00 02/24/20 10:50 Protonix PO 40 mg QDAY EDILSON Administration Sodium Chloride 10 ml 02/20/20 10:00 02/23/20 21:59 Sodium Chloride Flush Syringe 10 Ml IV 10 ml BID EDILSON Administration Sodium Chloride 10 ml 02/20/20 03:10 Sodium Chloride Flush Syringe 10 Ml IV PRN PRN LINE FLUSH Sodium Chloride 10 ml 02/21/20 12:00 Sodium Chloride Flush Syringe 10 Ml IV 03/02/20 11:59 PRN NR Zolpidem Tartrate 5 mg 02/20/20 17:08 Ambien PO QHS PRN Sleep
[2020-02-24] MEDS: amLODIPine 10 MG TAB PO SCH (16:36)
[2020-02-24] MEDS: WARFARIN 2 MG TAB PO SCH (16:36)
[2020-02-24] MEDS: LISINOPRIL 40 MG TAB PO SCH (16:36)
[2020-02-24] MEDS ORDERED: WARFARIN 10 MG TAB PO SCH (17:00)
[2020-02-24 17:34] LABS: INR 1.41 (0.87-1.13)
[2020-02-25 04:27] LABS: INR 1.27 (0.87-1.13)
[2020-02-25] MEDS: amLODIPine 10 MG TAB PO SCH (09:05)
[2020-02-25] MEDS: ENOXAPARIN 40 MG/0.4 ML INJ SUB-Q SCH (09:06)
[2020-02-25] MEDS: CALCIUM CARBONATE 500 MG TAB CHEW PO SCH ×2 (09:06→22:18)
[2020-02-25] MEDS: oxyCODONE /ACETAMINOPHEN 5-325MG TAB PO PRN ×2 (09:06→17:12)
[2020-02-25] MEDS: PANTOPRAZOLE 40 MG TAB PO SCH (09:06)
[2020-02-25] MEDS: LISINOPRIL 40 MG TAB PO SCH (11:52)
[2020-02-25] MEDS: MINOXIDIL 2.5 MG TAB PO SCH (11:53)
[2020-02-25] MEDS: WARFARIN 2 MG TAB PO SCH (17:11)
--- NOTE | 2020-02-25 18:24 | Progress Note ---
Assessment and Plan Assessment and plan: --Displaced right intertrochanteric hip fracture: s/p closed reduction insertion of intramedullary nail right femur Follow-up x-ray hip;Femoral joan with hip nail component placement right femur PT OT. Subacute rehab /[facility] placement COVID tests 24 hours apart negative, as requested by rehab. 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 fib; rate controlled ;Target INR 2-3 Continue current beta-blockers , resume Coumadin --Chronic thrombocytopenia; No evidence of external bleeding --Hypertension; well controlled Continue current antihypertensives and PRN medications --DVT phylaxis SCDs; High risk for DVT PE in view of orthopedic surgery Continue Coumadin/Lovenox, DC Lovenox at discharge Discharge planning; stable for discharge to subacute rehab Disposition; stable for discharge, transfer to SNF when they are ready Brief history: 74-year-old male with a history of DVT, PE, hypertension, A. fib, hyperlipidemia was admitted through emergency room with history of fall chasing a rat at home and sustained displaced right intertrochanteric hip fracture. Evaluated by orthopedic surgeon underwent , closed reduction insertion of intramedullary nail right femur. Patient received physical therapy occupational therapy reha bilitation, subacute rehab [facility] accepted the patient, to call with test 24 hours apart are negative, patient is stable to be discharged, however [facility] is still processing the paperwork, not ready to accept the patient Case management assisting with DC planning History Interval history: Patient seen and examined at the bedside this morning Patient's chart, medications reviewed Patient has no new complaints Tolerating physical therapy Awaiting SNF/subacute placement Vital signs noted Hospitalist Physical - Constitutional Vitals: Temp Pulse Resp BP Pulse Ox 98.9 F 137 H 20 124/75 92 02/25/20 15:56 02/25/20 15:56 02/25/20 15:56 02/25/20 15:56 02/25/20 15:56 General appearance: Present: no acute distress, well-nourished, obese - EENT Eyes: Present: PERRL, EOM intact - Neck Neck: Present: supple, normal ROM - Respiratory Respiratory effort: normal Respiratory: bilateral: diminished, negative: rales, rhonchi, wheezing - Cardiovascular Rhythm: regular Heart Sounds: Present: S1 & S2 - Extremities Extremities: no ischemia, No edema - Abdominal General gastrointestinal: soft, non-tender, non-distended, normal bowel sounds - Integumentary Integumentary: Present: clear, warm - Psychiatric Psychiatric: appropriate mood/affect, cooperative - Neurologic Neurologic: CNII-XII intact, moves all extremities Results - Labs CBC & Chem 7: 02/22/20 03:48 02/21/20 05:32 Labs: Laboratory Last Values WBC 7.7 K/mm3 (4.5-11.0) 02/21/20 05:32 RBC 5.82 M/mm3 (3.65-5.03) H 02/21/20 05:32 Hgb 13.6 gm/dl (11.8-15.2) 02/22/20 03:48 Hct 42.8 % (35.5-45.6) 02/22/20 03:48 MCV 81 fl (84-94) L 02/21/20 05:32 MCH 26 pg (28-32) L 02/21/20 05:32 MCHC 32 % (32-34) 02/21/20 05:32 RDW 17.6 % (13.2-15.2) H 02/21/20 05:32 Plt Count 107 K/mm3 (140-440) L 02/21/20 05:32 Lymph % (Auto) 14.6 % (13.4-35.0) 02/21/20 05:32 [place] % (Auto) 9.8 % (0.0-7.3) H 02/21/20 05:32 Eos % (Auto) 1.7 % (0.0-4.3) 02/21/20 05:32 Baso % (Auto) 0.5 % (0.0-1.8) 02/21/20 05:32 Lymph # 1.1 K/mm3 (1.2-5.4) L 02/21/20 05:32 [place] # 0.8 K/mm3 (0.0-0.8) 02/21/20 05:32 Eos # 0.1 K/mm3 (0.0-0.4) 02/21/20 05:32 Baso # 0.0 K/mm3 (0.0-0.1) 02/21/20 05:32 Seg Neutrophils % 73.4 % (40.0-70.0) H 02/21/20 05:32 Seg Neutrophils # 5.7 K/mm3 (1.8-7.7) 02/21/20 05:32 PT 15.6 Sec. (12.2-14.9) H 02/25/20 03:41 INR 1.27 (0.87-1.13) H 02/25/20 03:41 APTT 27.7 Sec. (24.2-36.6) 02/20/20 00:42 Sodium 141 mmol/L (137-145) 02/21/20 05:32 Potassium 3.9 mmol/L (3.6-5.0) 02/21/20 05:32 Chloride 105.4 mmol/L (98-107) 02/21/20 05:32 Carbon Dioxide 20 mmol/L (22-30) L 02/21/20 05:32 Anion Gap 20 mmol/L 02/21/20 05:32 BUN 28 mg/dL (9-20) H 02/21/20 05:32 Creatinine 1.4 mg/dL (0.8-1.5) 02/21/20 05:32 Estimated GFR 60 ml/min 02/21/20 05:32 BUN/Creatinine Ratio 20 % 02/21/20 05:32 Glucose 150 mg/dL (75-100) H 02/21/20 05:32 POC Glucose 132 (70-105) H 02/22/20 07:20 Calcium 8.5 mg/dL (8.4-10.2) 02/21/20 05:32 Coronavirus (PCR) Negative (Negative) 02/22/20 08:45 Hinson/IV: Voiding Method Indwelling Catheter IV Catheter Type [Left Hand] Peripheral IV IV Catheter Type [Right INT / Saline Lock Antecubital] Active Medications - Current Medications Current Medications: Generic Name Dose Route Start Last Admin Trade Name Freq PRN Reason Stop Dose Admin Acetaminophen 650 mg 02/20/20 03:10 Tylenol PO Q4H PRN Pain MILD(1-3)/Fever >100.5/COREA Al Hydrox/Mg Hydrox/Simethicone 15 ml 02/22/20 14:27 Alum-Mag Hydrox-Simeth [id number]/5ml PO Q4H PRN Indigestion Amlodipine Besylate 10 mg 02/22/20 10:00 02/25/20 09:05 Amlodipine PO 10 mg DAILY EDILSON Administration Calcium Carbonate/Glycine 500 mg 02/22/20 22:00 02/25/20 09:06 Tums PO 500 mg BID EDILSON Administration Enoxaparin Sodium 40 mg 02/22/20 10:00 02/25/20 09:06 Enoxaparin SUB-Q 40 mg QDAY EDILSON Administration Lisinopril 40 mg 02/22/20 10:00 02/25/20 11:52 Zestril PO 40 mg QDAY EDILSON Administration Minoxidil 2.5 mg 02/22/20 10:00 02/25/20 11:53 Loniten PO 2.5 mg DAILY EDILSON Administration Morphine Sulfate 2 mg 02/21/20 11:39 02/24/20 00:25 Morphine IV 2 mg Q4H PRN Administration Pain, Moderate (4-6) Morphine Sulfate 4 mg 02/21/20 11:39 Morphine IV Q4H PRN Pain , Severe (7-10) Ondansetron HCl 4 mg 02/20/20 03:10 02/22/20 00:28 Zofran IV 4 mg Q8H PRN Administration Nausea And Vomiting Oxycodone/Acetaminophen 1 tab 02/22/20 20:47 02/25/20 17:12 Percocet 5/325 PO 1 tab Q4H PRN Administration Pain, Moderate (4-6) Pantoprazole Sodium 40 mg 02/22/20 11:00 02/25/20 09:06 Protonix PO 40 mg QDAY EDILSON Administration Sodium Chloride 10 ml 02/20/20 10:00 02/25/20 09:06 Sodium Chloride Flush Syringe 10 Ml IV 10 ml BID EDILSON Administration Sodium Chloride 10 ml 02/20/20 03:10 Sodium Chloride Flush Syringe 10 Ml IV PRN PRN LINE FLUSH Sodium Chloride 10 ml 02/21/20 12:00 Sodium Chloride Flush Syringe 10 Ml IV 03/02/20 11:59 PRN NR Warfarin Sodium 6 mg 02/24/20 17:00 02/25/20 17:11 Coumadin PO 6 mg DAILY@1700 EDILSON Administration Zolpidem Tartrate 5 mg 02/20/20 17:08 Ambien PO QHS PRN Sleep Nutrition/Malnutrition Assess - Dietary Evaluation Nutrition/Malnutrition Findings: Nutrition Notes Start: 02/25/20 10:57 Freq: Status: Active Protocol: Document 02/25/20 10:57 LP (Rec: 02/25/20 10:58 LP [email or web address]) Nutrition Notes Current Diagnosis Hypertension,Heart Failure Other Pertinent Diagnosis PE, Right hip fx Pertinent Medications Coumadin Subjective/Other Information Screen for Coumadin. Pt states being aware of Coumadin diet. Pt consuming 75-100% of meals . Nutrition Intervention Revisit per MD consult or patient Sign Off request:
[2020-02-25] MEDS ORDERED: METOPROLOL TARTRATE 5 MG/5 ML INJ IV ONE (22:58)
[2020-02-26 06:06] LABS: INR 1.2 (0.87-1.13)
[2020-02-26] MEDS: ENOXAPARIN 40 MG/0.4 ML INJ SUB-Q SCH (09:49)
[2020-02-26] MEDS: CALCIUM CARBONATE 500 MG TAB CHEW PO SCH (09:49)
[2020-02-26] MEDS: PANTOPRAZOLE 40 MG TAB PO SCH (09:49)
[2020-02-26] MEDS: amLODIPine 10 MG TAB PO SCH (09:50)
[2020-02-26] MEDS: MINOXIDIL 2.5 MG TAB PO SCH (09:50)
[2020-02-26] MEDS: LISINOPRIL 40 MG TAB PO SCH (09:50)
--- NOTE | 2020-02-26 13:40 | Progress Note ---
Assessment and Plan s/p IM nail right hip/femur post op #4 continue PT and observation, hopefully dc soon Subjective Date of service: 02/26/20 Interval history: states he wants to go home upon dc... Objective Vital signs: Vital Signs - 12hr 02/26/20 02/26/20 02/26/20 01:45 02:00 03:39 Temperature 98.7 F 98.6 F Pulse Rate 91 H 70 Respiratory 16 18 Rate Respiratory 17 Rate [Right Hip ] Blood Pressure 126/61 Blood Pressure 112/57 [Left] O2 Sat by Pulse 92 93 Oximetry 02/26/20 02/26/20 02/26/20 07:26 09:19 09:50 Temperature 98.7 F Pulse Rate 57 L 57 L Respiratory 19 19 Rate Respiratory Rate [Right Hip ] Blood Pressure 134/84 134/84 Blood Pressure [Left] O2 Sat by Pulse 95 95 Oximetry Incision: healing, clean and dry Weight bearing status: partial - Labs CBC & BMP: 02/22/20 03:48 02/21/20 05:32 Labs: Abnormal lab results 02/26/20 Range/Units 05:37 PT 15.0 H (12.2-14.9) Sec. INR 1.20 H (0.87-1.13)
--- NOTE | 2020-02-26 14:13 | Progress Note ---
Assessment and Plan --Displaced right intertrochanteric hip fracture: s/p closed reduction insertion of intramedullary nail right femur Follow-up x-ray hip;Femoral joan with hip nail component placement right femur PT OT. Subacute rehab /[facility] placement COVID tests 24 hours apart negative, as requested by rehab. 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 fib; rate controlled ;Target INR 2-3 Continue current beta-blockers , resume Coumadin --Chronic thrombocytopenia; No evidence of external bleeding --Hypertension; well controlled Continue current antihypertensives and PRN medications --DVT phylaxis SCDs; High risk for DVT PE in view of orthopedic surgery Continue Coumadin/Lovenox, DC Lovenox at discharge Discharge planning; stable for discharge to subacute rehab Disposition; stable for discharge, transfer to SNF when they are ready Brief history: 74-year-old male with a history of DVT, PE, hypertension, A. fib, hyperlipidemia was admitted through emergency room with history of fall chasing a rat at home and sustained displaced right intertrochanteric hip fracture. Evaluated by orthopedic surgeon underwent , closed reduction insertion of intramedullary nail right femur. Patient received physical therapy occupational therapy rehabilitation, subacute rehab [facility] accepted the patient, to call with test 24 hours apart are negative, patient is stable to be discharged, however [facility] is still processing [facility] paperwork, not ready to accept the patient Case management assisting with DC planning Physical exam: General appearance: Present: no acute distress, well-nourished, obese - EENT Eyes: Present: PERRL, EOM intact - Neck Neck: Present: supple, normal ROM - Respiratory Respiratory effort: normal Respiratory: bilateral: diminished, negative: rales, rhonchi, wheezing - Cardiovascular Rhythm: regular Heart Sounds: Present: S1 & S2 - Extremities Extremities: no ischemia, No edema - Abdominal General gastrointestinal: soft, non-tender, non-distended, normal bowel sounds - Integumentary Integumentary: Present: clear, warm - Psychiatric Psychiatric: appropriate mood/affect, cooperative - Neurologic Neurologic: CNII-XII intact, moves all extremities Subjective Date of service: 02/26/20 Objective - Constitutional Vitals: Vital Signs - 12hr 02/26/20 02/26/20 02/26/20 03:39 07:26 09:19 Temperature 98.6 F 98.7 F Pulse Rate 70 57 L Respiratory 18 19 19 Rate Blood Pressure 126/61 134/84 O2 Sat by Pulse 93 95 95 Oximetry 02/26/20 09:50 Temperature Pulse Rate 57 L Respiratory Rate Blood Pressure 134/84 O2 Sat by Pulse Oximetry - Labs CBC & Chem 7: 02/22/20 03:48 02/21/20 05:32 Labs: Abnormal lab results 02/26/20 Range/Units 05:37 PT 15.0 H (12.2-14.9) Sec. INR 1.20 H (0.87-1.13)
--- NOTE | 2020-02-26 14:36 | Discharge Summary ---
Providers - Providers Date of Admission: 02/20/20 03:10 Date of discharge: 02/26/20 Attending physician: GEETHA MELENDEZ 02/20/20 01:30 Consult to Physician [CONS] Urgent Comment: Consulting Provider: TIFFANIE KING Physician Instructions: Reason For Exam: IT right hip fracture 02/21/20 11:42 Physical Therapy Evaluation and Treat [CONS] Routine Comment: Reason For Exam: Postop evaluation Weight bearing status?: Partial wt bearing Assistive devices?: Yes If so list: Walker Primary care physician: [employer] Hospitalization Condition: Stable Hospital course: 74-year-old male with a history of DVT, PE, hypertension, A. fib, hyperlipidemia was admitted through emergency room with history of fall after chasing a rat at home and sustained displaced right intertrochanteric hip fracture. Evaluated by orthopedic surgeon, underwent closed reduction with insertion of intramedullary nail right femur. Patient received physical therapy occupational therapy, PT recommended subacute rehab. Patient was then accepted to [facility] and was discharged in stable condition. Discharge diagnosis and management: --Displaced right intertrochanteric hip fracture: s/p closed reduction insertion of intramedullary nail right femur Follow-up x-ray hip; Femoral joan with hip nail component placement right femur PT OT: Subacute rehab /[facility] home placement COVID tests 24 hours apart negative, as requested by rehab. 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 fib; rate controlled ;Target INR 2-3 Continue current beta-blockers , resume Coumadin --Chronic thrombocytopenia; No evidence of external bleeding --Hypertension; well controlled Continue current antihypertensives and PRN medications --DVT phylaxis SCDs; High risk for DVT PE in view of orthopedic surgery Continue Coumadin Disposition; stable for discharge, Physical exam: General appearance: Present: no acute distress, well-nourished, obese - EENT Eyes: Present: PERRL, EOM intact - Neck Neck: Present: supple, normal ROM - Respiratory Respiratory effort: normal Respiratory: bilateral: diminished, negative: rales, rhonchi, wheezing - Cardiovascular Rhythm: regular Heart Sounds: Present: S1 & S2 - Extremities Extremities: no ischemia, No edema - Abdominal General gastrointestinal: soft, non-tender, non-distended, normal bowel sounds - Integumentary Integumentary: Present: clear, warm - Psychiatric Psychiatric: appropriate mood/affect, cooperative - Neurologic Neurologic: CNII-XII intact, moves all extremities Disposition: DC/[facility] ANOTHER TYPE [facility] Time spent for discharge: 34 minutes Core Measure Documentation - Palliative Care Palliative Care/ Comfort Measures: Not Applicable - Core Measures Any of the following diagnoses?: none Exam - Constitutional Vitals: Temp Pulse Resp BP Pulse Ox 98.7 F 57 L 19 134/84 95 02/26/20 07:26 02/26/20 09:50 02/26/20 09:19 02/26/20 09:50 02/26/20 09:19 Plan Activity: fall precautions Weight Bearing Status: Non-Weight Bearing Diet: regular Wound: per your surgeon's advice Follow up with: PRIMARY CARE, [Primary Care Provider] - 7 Days Forms: Warfarin Discharge Instruction Prescriptions: oxyCODONE /ACETAMINOPHEN [Percocet 5/325 mg] 1 tab PO Q4H PRN #14 tablet PRN Reason: Pain, Moderate (4-6)
[2020-02-26 16:19] VITALS: BP 132/72
[2020-02-26] MEDS ORDERED: WARFARIN 7.5 MG TAB PO SCH (17:00)
== END 2020-02-26 18:39 | DRG 482 ==
LOC: ED 23:16 → 4A 02-20 03:10 → 3B-SURG 02-20 17:13
PROVIDERS: ADMIT Internal Medicine; ATTEND Internal Medicine
PROC: 0QS636Z Reposition Right Upper Femur with Intramedullary Internal Fixation Device, Percutaneous Approach (ICD-10-PCS; principal; 2020-02-21)
PROC: 5A09357 Assistance with Respiratory Ventilation, Less than 24 Consecutive Hours, Continuous Positive Airway Pressure (ICD-10-PCS; 2020-02-21)
DX: S72.141A Displaced intertrochanteric fracture of right femur, initial encounter for closed fracture (principal); I48.91 Unspecified atrial fibrillation; D69.6 Thrombocytopenia, unspecified; I11.0 Hypertensive heart disease with heart failure; E11.9 Type 2 diabetes mellitus without complications; K21.9 Gastro-esophageal reflux disease without esophagitis; E78.5 Hyperlipidemia, unspecified; G47.30 Sleep apnea, unspecified; E66.9 Obesity, unspecified; K29.70 Gastritis, unspecified, without bleeding; I50.9 Heart failure, unspecified; Z86.711 Personal history of pulmonary embolism; Z86.718 Personal history of other venous thrombosis and embolism; Z87.442 Personal history of urinary calculi; Z87.891 Personal history of nicotine dependence; Z82.49 Family history of ischemic heart disease and other diseases of the circulatory system; Z95.810 Presence of automatic (implantable) cardiac defibrillator; Z79.82 Long term (current) use of aspirin; Z79.899 Other long term (current) drug therapy; Z68.34 Body mass index [BMI] 34.0-34.9, adult; Z03.818 Encounter for observation for suspected exposure to other biological agents ruled out; W18.39XA Other fall on same level, initial encounter; Y93.89 Activity, other specified; Y92.098 Other place in other non-institutional residence as the place of occurrence of the external cause; Y99.8 Other external cause status
CPT/HCPCS: 36415; 71045; 80048; 82962; 85014; 85018; 85025; 85610; 85730; 93005; 94660; 94760; G0378; C1713; C1769; J0690; J1170; J1650; J2250; J2270; J2405; J2704; J7120; U0003-CS

== ENCOUNTER 2020-03-05 10:55 | Outpatient (CLI) | payer MEDICARE ==
--- NOTE | 2020-03-05 11:52 | XRay Report ---
Right hip, 3 views INDICATION: Postop pain FINDINGS: Again seen is a recent right intertrochanteric fracture which is undergone open reduction a nd internal fixation with fixation hardware in place. Fragments are in good alignment with moderate i mpaction seen. The hardware is intact. No superimposed acute fracture. No arthritic change is seen. T here is extensive vascular calcification. No significant postoperative abnormality. Signer Name: Denys Ribeiro MD Signed: 03/05/2020 11:47 AM Workstation Name: [id number]
--- NOTE | 2020-03-05 11:53 | XRay Report ---
Right femur, 2 views INDICATION: Hip fracture, postop FINDINGS: Intertrochanteric fracture of the right hip is again seen with medullary joan and fixation p in in place. Fragments appear to be in good alignment. The middle and distal thirds of the femur are intact. There is extensive vascular calcification. No definite postoperative abnormality. Signer Name: Denys Ribeiro MD Signed: 03/05/2020 11:48 AM Workstation Name: [id number]
== END 2020-03-05 10:56 | disposition home or self-care (01) ==
LOC: XRAY 10:55
PROVIDERS: ATTEND Orthopaedic Surgery
DX: S72.091A Other fracture of head and neck of right femur, initial encounter for closed fracture (principal); X58.XXXA Exposure to other specified factors, initial encounter; Y93.89 Activity, other specified; Y92.89 Other specified places as the place of occurrence of the external cause; Y99.8 Other external cause status; Z98.890 Other specified postprocedural states